=== PATIENT | male | born 2000 | race Caucasian/White ===

== ENCOUNTER → 2018-03-04 | Outpatient (CLI) | payer SELFPAY ==
--- NOTE | 2018-03-05 04:22 | RADIOLOGY IMAGING REPORT ---
FACILITY: [facility] - [place] PATIENT NAME: Jerome Ray : 2000 MR: [id number] V: [id number] EXAM DATE: ORDERING PHYSICIAN: INDIA STANLEY TECHNOLOGIST: [place] [facility] [place] Ray : 2000 Visit/Account:[id number] Date of Sevice: 03/04/2018 Ultrasound of the scrotum and testicles: Indication: Chronic left scrotal swelling and pain. Technique: Duplex Doppler and color Doppler imaging were performed. Comparison: None. Testicles: The right testicle measures 4.4 x 2.7 x 2.0 cm. The left testicle measures 4.1 x 2.8 x 1.9 cm. There is uniform parenchymal echogenicity. There is no evidence of nodule, calcification, or cys t. Doppler images demonstrate normal flow signals. There are no signs of testicular torsion. Epididymal structures: Symmetrical and unremarkable. There is a 7 mm calcification adjacent to the david dy of the left epididymis. Varicocele: None seen. Hydrocele: There is a small hydrocele on the left. There is minimal fluid on the right. Impression: The testicles appear symmetrical and unremarkable. There is a small hydrocele on the left . A small calcification is also present on the left, adjacent to the epididymis. Report Dictated By: Sea Gerard MD at 03/05/2018 4:06 AM Report E-Signed By: Sea Gerard MD at 03/05/2018 4:19 AM WSN:[id number]
== END ==
LOC: US 14:55
PROVIDERS: ATTEND Urology
DX: N43.2 Other hydrocele (principal)
CPT/HCPCS: 76870